=== PATIENT | female | born 1975 | race Hispanic/Latino ===

== ENCOUNTER 2023-04-23 07:30 | Day surgery (SDC) | payer BC ==
[2023-04-18 11:47] LABS: BASOPHILS # (AUTO) 0.04 K/uL (0.00-0.20); BASOPHILS % (AUTO) 0.5 % (0.0-5.0); EOSINOPHILS % (AUTO) 1.1 % (0.0-8.0); HEMATOCRIT 42.8 % (36-48); IMMATURE GRANULOCYTE ABSOLUTE 0.02 K/uL (0-1); LYMPHOCYTES # (AUTO) 1.9 K/uL (1.0-4.8); LYMPHOCYTES % (AUTO) 21.9 % (21.0-51.0); MEAN CORPUSCULAR HEMOGLOBIN 26.7 pg (27.0-33.0); MEAN CORPUSCULAR HGB CONC 31.3 g/dL (32.0-36.0); MEAN CORPUSCULAR VOLUME 85.4 fL (79-99); MONOCYTES # (AUTO) 0.4 K/uL (0.1-1.0); MONOCYTES % (AUTO) 4.3 % (3.0-13.0); NEUTROPHILS # (AUTO) 6.4 K/uL (1.8-7.7); PLATELET COUNT (AUTO) 305 K/uL (130-400); RED BLOOD CELL COUNT(AUTO) 5.01 MIL/uL (4.00-5.50); RED CELL DISTRIBUTION WIDTH 15.1 % (11.0-15.5); WHITE BLOOD COUNT (AUTO) 8.9 K/uL (4.8-10.8)
[2023-04-18 11:56] LABS: INR < 0.93 (0.85-1.15)
[2023-04-18 11:57] LABS: PARTIAL THROMBOPLASTIN TIME 27.3 SEC (26.3-35.5)
[2023-04-18 12:00] LABS: CREATININE 0.8 mg/dL (0.5-1.5); POTASSIUM 4.3 mmol/L (3.5-5.1)
[2023-04-18 13:07] VITALS: BP 97/44; PULSE 98; RESP 16
[~2023-04-23] VITALS: Ht 162.6 cm; Wt 130.3 kg
[~2023-04-23 07:30] MED LIST: EMPA25TA PO; TIRZ12.5 SQ; TRAM100T40 PO
[2023-04-23 08:10] VITALS: BP 117/62; PULSE 76; RESP 16
[2023-04-23] MEDS ORDERED: PROPOFOL 10 MG/ML 20ML VIAL IV ONE (09:37)
== END 2023-04-23 10:30 | disposition home or self-care (01) ==
LOC: DAH 07:30
PROVIDERS: ATTEND Surgery
DX: K29.50 Unspecified chronic gastritis without bleeding (principal); E11.9 Type 2 diabetes mellitus without complications; E66.01 Morbid (severe) obesity due to excess calories; Z68.42 Body mass index [BMI] 45.0-49.9, adult; Z82.49 Family history of ischemic heart disease and other diseases of the circulatory system; Z83.3 Family history of diabetes mellitus; Z79.899 Other long term (current) drug therapy
CPT/HCPCS: 80048; 84703; 85025; 85610; 85730; 36415; 82948; 81025; 88305; 88312; 43239; A6260; J2704; A4620; A4215; A4223; A7002; A4222; A4221; A4663; J7030; A4606; J3490

== ENCOUNTER → 2024-01-08 | Outpatient (CLI) | payer OTHER ==
[~2024-01-08] VITALS: Ht 10.2 cm; Wt 131.8 kg
== END | disposition home or self-care (01) ==
LOC: DTH 12:55
PROVIDERS: ATTEND Surgery
DX: E66.01 Morbid (severe) obesity due to excess calories (principal); G47.33 Obstructive sleep apnea (adult) (pediatric); E11.9 Type 2 diabetes mellitus without complications; M19.90 Unspecified osteoarthritis, unspecified site; K21.9 Gastro-esophageal reflux disease without esophagitis; K76.0 Fatty (change of) liver, not elsewhere classified; E78.00 Pure hypercholesterolemia, unspecified; Z68.42 Body mass index [BMI] 45.0-49.9, adult; Z71.3 Dietary counseling and surveillance
CPT/HCPCS: 97802

== ENCOUNTER → 2024-01-10 | Outpatient (CLI) | payer BC ==
[2024-01-10 08:54] LABS: BASOPHILS # (AUTO) 0.06 K/uL (0.00-0.20); BASOPHILS % (AUTO) 0.6 % (0.0-5.0); EOSINOPHILS # (AUTO) 0.31 K/uL (0.00-0.70); EOSINOPHILS % (AUTO) 3.2 % (0.0-8.0); HEMATOCRIT 43.9 % (36-48); IMMATURE GRANULOCYTE ABSOLUTE 0.02 K/uL (0-1); LYMPHOCYTES # (AUTO) 1.9 K/uL (1.0-4.8); LYMPHOCYTES % (AUTO) 19.3 % (21.0-51.0); MEAN CORPUSCULAR HEMOGLOBIN 26.6 pg (27.0-33.0); MEAN CORPUSCULAR HGB CONC 32.3 g/dL (32.0-36.0); MEAN CORPUSCULAR VOLUME 82.2 fL (79-99); MONOCYTES # (AUTO) 0.5 K/uL (0.1-1.0); MONOCYTES % (AUTO) 4.9 % (3.0-13.0); NEUTROPHILS % (AUTO) 71.8 % (40.0-77.0); PLATELET COUNT (AUTO) 252 K/uL (130-400); RED BLOOD CELL COUNT(AUTO) 5.34 MIL/uL (4.00-5.50); RED CELL DISTRIBUTION WIDTH 15.9 % (11.0-15.5); WHITE BLOOD COUNT (AUTO) 9.8 K/uL (4.8-10.8)
[2024-01-10 09:03] LABS: HEMOGLOBIN A1C 10.4 % (4.0-6.0)
[2024-01-10 09:43] LABS: ALBUMIN 3.2 g/dL (3.5-5.0); BILIRUBIN,TOTAL 0.5 mg/dL (0.2-1.0); CREATININE 0.8 mg/dL (0.5-1.0); MAGNESIUM 1.7 mg/dL (1.80-2.40); POTASSIUM 4.4 mmol/L (3.5-5.1); T4 (THYROXINE) 10.4 ug/dL (4.7-13.3); THYROID STIMULATING HORMONE 1.02 uIU/mL (0.36-3.74); TOTAL PROTEIN, SERUM 7.6 g/dL (6.0-8.3)
== END | disposition home or self-care (01) ==
LOC: LAB 10:00
PROVIDERS: ATTEND Surgery
DX: E11.9 Type 2 diabetes mellitus without complications (principal); M19.91 Primary osteoarthritis, unspecified site; E78.00 Pure hypercholesterolemia, unspecified; K76.0 Fatty (change of) liver, not elsewhere classified; K21.9 Gastro-esophageal reflux disease without esophagitis; E66.01 Morbid (severe) obesity due to excess calories; Z79.899 Other long term (current) drug therapy
CPT/HCPCS: 36415; 71045; 80053; 80061; 82306; 82607; 82746; 82947; 83036; 83540; 83735; 84207; 84425; 84436; 84443; 84446; 84481; 84590; 84630; 85025; 93005

== ENCOUNTER → 2024-01-22 | Outpatient (CLI) | payer OTHER | END | disposition home or self-care (01) | LOC: DTH 11:47 | PROVIDERS: ATTEND Surgery | DX: E66.01 Morbid (severe) obesity due to excess calories (principal); K21.9 Gastro-esophageal reflux disease without esophagitis; E11.9 Type 2 diabetes mellitus without complications; E78.00 Pure hypercholesterolemia, unspecified; K76.0 Fatty (change of) liver, not elsewhere classified; M19.90 Unspecified osteoarthritis, unspecified site; Z68.42 Body mass index [BMI] 45.0-49.9, adult; Z71.3 Dietary counseling and surveillance | CPT/HCPCS: 97803 ==

== ENCOUNTER 2025-02-10 08:36 | Observation (INO) | payer BC ==
[2025-02-09 14:53] LABS: IMMATURE GRANULOCYTE ABSOLUTE 0.02 K/uL (0-1); NUCLEATED RED BLOOD CELLS 0.0 % (0.0-0.19); PLATELET COUNT (AUTO) 248 K/uL (130-400); RED BLOOD CELL COUNT(AUTO) 5.30 MIL/uL (4.00-5.50); RED CELL DISTRIBUTION WIDTH 14.4 % (11.0-15.5); WHITE BLOOD COUNT (AUTO) 9.1 K/uL (4.8-10.8)
[2025-02-09 15:00] LABS: CREATININE 0.8 mg/dL (0.5-1.0); GLOMERULAR FILTR. RATE CALC 90.0 mL/min (>90); GLUCOSE,RANDOM 197.0 mg/dL (70-105); SODIUM SERUM 138.0 mmol/L (136-145); UREA NITROGEN, BLOOD 8.0 mg/dL (7-18)
[2025-02-09 15:02] LABS: INR 1.03 (0.85-1.15)
[2025-02-09 15:08] VITALS: BP 116/67; PULSE 68; RESP 16; TEMP 98.1
--- NOTE | 2025-02-09 18:45 | EKG ---
[facility] Test Date: 2025-02-09 Test Time: 14:36:35 Pat Name: CHARI GARCIA Department: [facility] Room: Gender: F Med Surg Nurse: [id number] : 1975 Requested By: MEGAN CHAIDEZ Order Number: [id number] Reading MD: Eugenie Souza Measurements Intervals [place] Rate: 71 P: 50 [place]: 138 QRS: -18 QRSD: 89 T: 38 QT: 396 QTc: 430 Interpretive Statements Sinus rhythm Compared to ECG 01/10/2024 08:41:43 No significant changes Electronically Signed On 02-10-2025 08:34:09 CDT by Eugenie Souza Please click the below link to view image of tracing.
[2025-02-10] VITALS (29 sets, daily range): BP systolic 117–157; BP diastolic 62–97; PULSE 68–100; RESP 15–20; TEMP 97.3–98.2; O2SAT 91–92
[~2025-02-10] VITALS: Ht 162.6 cm; Wt 115.2 kg
[2025-02-10] MEDS: 0.9%NACL 1000ML 1,000 ML IV ONE (09:31)
[2025-02-10] MEDS ORDERED: LIDOCAINE PF 100MG/5ML (2%) SYRINGE 5ML ONE (12:51)
[2025-02-10] MEDS ORDERED: NEOSTIGMINE METHYLSULFATE 1MG/ML IV ONE (12:52)
[2025-02-10] MEDS ORDERED: SUCCINYLCHOLINE CHLORIDE 20 MG/ML 10 ML VIAL ONE (12:52)
[2025-02-10] MEDS ORDERED: GLYCOPYRROLATE 0.2 MG/ML 5 ML VIAL ONE (12:52)
[2025-02-10] MEDS ORDERED: MIDAZOLAM HCL 1 MG/ML 2ML VIAL ONE (12:53)
[2025-02-10] MEDS: FAMOTIDINE 20MG VIAL IV ONE (13:39)
[2025-02-10] MEDS: SUGAMMADEX SODIUM 200 MG/2 ML VIAL IV ONE (13:42)
[2025-02-10] MEDS ORDERED: PROCHLORPERAZINE 10MG/2ML INJ IV PRN (15:30)
--- NOTE | 2025-02-10 15:46 | OP ---
Operative Note: DATE OF PROCEDURE: 02/10/25 SURGEON: MEGAN CHAIDEZ MD MICROSTRATEGY BI DEVELOPER: [Please review operative record] ANESTHESIA: [General and local] ANESTHESIOLOGIST/INPATIENT SERVICES DIRECTOR: [Please review operative record] PREOPERATIVE DIAGNOSIS: [Morbid obesity and associated comorbidities including type 2 diabetes, hyperlipidemia, obstructive sleep apnea.] POSTOPERATIVE DIAGNOSIS: [Same in addition to fatty liver infiltration] SYNOPSIS: [Fatty liver infiltration, with laparoscopic-assisted percutaneous core needle liver biopsy performed. EGD post sleeve gastrectomy showing no air leak, no obstruction, no active intraluminal bleeding.] PROCEDURE: [Robotic assisted laparoscopic vertical sleeve gastrectomy. Omentoplasty. Intraoperative EGD. Laparoscopic-assisted percutaneous core needle liver biopsy] ESTIMATED BLOOD LOSS: [20 cc] INDICATIONS: [50-year-old female with morbid obesity and associated comorbidities including hyperlipidemia, type 2 diabetes, obstructive sleep apnea who failed in the past conservative measures in order to lose weight. Recommendation was given for bariatric surgery. Patient underwent the appropriate clearances. Upon discussion, it was decided that vertical sleeve gastrectomy was the appropriate procedure for this patient. Risks, benefits, alternatives were discussed with the patient. All her questions were answered. Patient agreed to proceed with surgical procedure] DESCRIPTION OF PROCEDURE: [After appropriate consent was obtained, the patient was taken to the operating room placed in supine position on the operating table. SCDs were placed, preop antibiotics were given. Patient underwent induction of general anesthesia, endotracheal intubation. Patient was then prepped and draped in usual sterile fashion. Time-out was performed. Through a left subcostal incision, Veress needle was inserted into the peritoneal cavity. Insufflation was allowed to 12 mmHg. Through a supraumbilical incision, 8 mm trocar and laparoscope were advanced into the peritoneal cavity using Autotetherview. Veress needle and this vicinity were examined with no signs of injury. Rest of my trocars were all placed under direct visualization. At this time patient was placed in the reverse Trendelenburg at 20 position. The da Jad robot was docked. Upon evaluation of the liver, it shows signs of fatty infiltration and nodular appearance. A liver biopsy was later performed. Left lobe of the liver was retracted anteriorly with a 5 mm liver retractor. We mobilized the greater curvature of the stomach from the angle of his down to 3 cm proximal to the pylorus using the vessel sealer scalpel. We applied a blue load 4 cm proximal to the pylorus parallel to the lesser curvature. We then passed the flexible endoscope down the esophagus along the lesser curvature of the stomach and into the pylorus. We then applied a series of white loads parallel to the endoscope up towards the angle of Hiss. The staple lines were examined on both sides and found to be intact. Endoscopy with insufflation revealed no leaks, no active intraluminal bleeding, no obstruction. The scope was then withdrawn. An omental covering was placed over the staple edge of the stomach by suturing the omentum to the stomach with a running two 0 V lock absorbable suture. At this time the da Jad robot was undocked. A laparoscopic-assisted percutaneous core needle liver biopsy was then performed. The needle was passed percutaneously in the left lobe of the liver. Good specimen was obtained and sent for pathology. Final inspection revealed no bleeding or injury. The gastric remnant specimen was then removed through a 12 mm trocar. We closed the 12 mm port fascia with 0 Vicryl suture through a suture Passer. Counts were correct at the end of the case. The abdomen was deflated. Skin incisions were closed with 4-0 Monocryl suture. Dermabond was applied over the incisions. The patient tolerated the procedure well. Patient went to recovery in good condition.] MEGAN CHAIDEZ MD Feb 10, 2025 15:46
--- NOTE | 2025-02-10 17:00 | NUR ---
PATIENT ARRIVED TO UNIT Patient transferred from PACU to unit via stretcher. Assisted to stand x 1 staff, and contact assist to bathroom. Patient voided large amount of clear yellow urine. Assisted back to bed x 1 staff. Denies pain at this time. 5 incision with dermabond, clean dry and intact. Family/significant other at bedside. Patient oriented to unit, room. Fall precautions in place. Patient complains of mild nausea. Will administer prn antinausea medication. Call light in reach. Personal belongings near patient. Instructed to call for assist if needed. Addendum: 02/10/25 at 1742 by BOSSMAN BELTRAN RN RN Antinausea medication not due. Patient reports that she is not nauseated. She meant to say that she is in pain. Reports a pain at 6/10. Will administer prn.
[2025-02-10] MEDS: LACTATED RINGERS 1000ML 1,000 ML IV SCH (18:15)
[2025-02-10] MEDS: ENOXAPARIN SODIUM 40 MG/0.4 ML SYRINGE SQ SCH (21:05)
--- NOTE | 2025-02-10 21:40 | NUR ---
Pt. up and ambulating in hallway @ this time, tolerating well; no c/o voiced out.
[2025-02-11] VITALS (7 sets, daily range): BP systolic 120–151; BP diastolic 63–75; PULSE 61–78; RESP 18–24; TEMP 97.8–98.4; O2SAT 97
[2025-02-11] MEDS: HYDROcod/acetaMINOPHEN 7.5/325 MG 15 ML UDCUP PO PRN (06:22)
--- NOTE | 2025-02-11 09:37 | NUR ---
DCP:HOME Pt currently lives with her dgt. pt does not have any DME, home health, or provider services. Pt states that she is able to complete ADLs independently. PCP is Dr. Matthew Thao and uses [facility] for any RX needs. At [place] pt will want to go home and family can assist with transportation. Addendum: 02/11/25 at 0939 by HERMAN SUE SS Amended: Links added.
--- NOTE | 2025-02-11 14:00 | NUR ---
PT OBSERVED AMBULATING IN HALLS WITH ABD BINDER ON NO SAFETY CONCERNS NOTED. DC FROM PT. Addendum: 02/11/25 at 1528 by LUZ GRAY PT Amended: Links added.
--- NOTE | 2025-02-11 14:17 | NUR ---
Nutrition consult per Pt bariatric Reviewed labs, notes, and medications. Pt with phase 1, sedated, insulin, BG 170(H) per chart review. Daughter in room during visit. Pt reported <50%PO intake, denied N/V, belching, gas, fair appetite, MVI to arrive at home today, still has all RD education, spoke to mortgage coordinator already, is able to walk, tolerating phase 1. RD reviewed educational material for post-op diet recommendations. Pt was informed of importance of lifelong vitamin/mineral supplementation, choosing protein first during meals (pt was educated on higher protein requirements), choosing low calorie, sugar free, carbonated free and caffeine beverages. RD also informed pt on lifelong commitment to exercise and dietary recommendations for optimal success post surgery. RD encouraged getting blood work every 3 to 6 months, including B-vitamins, Pt verbalized understanding. RD informed Pt on moving around after procedure to prevent DVT, Pt verbalized understanding. Pt was encouraged to contact RD as questions arise and to attend support groups. Fair compliance suspected. Pt will benefit from outpatient bariatric dietitian follow up post procedure. Pt to follow up with PCP for labs. Recommendations: -Continue phase 1 bariatric diet for 1 week -Provide chewable MVI QD when medically feasible -Monitor electrolytes -Monitor diet tolerance -Monitor BM -Monitor wts -Monitor PO intake -Recommend Pt to follow up with PCP -Monitor goals of care RD available for consult per protocol Addendum: 02/11/25 at [address] Amended: Links added.
--- NOTE | 2025-02-11 14:58 | NUR ---
PATIENT DISCHARGED. IVS REMOVED INTACT. APPOINTMENT TIMES AND DATES GIVEN, PRESCRIPTIONS GIVEN TO PATIENT. ALL QUESTIONS AND CONCERNS ANSWERED. PATIENT TRANSPORTED DOWN VIA WHEELCHAIR ALERT AND ORIENTED X 4.
--- NOTE | 2025-02-11 19:33 | DS ---
Discharge Summary Hospital Course No acute events overnight. Patient has tolerated clear fluids well. VSS. Her BBS are clear. Abdomen is soft and not distended. Active BS present. Incisions are D&I christine. Home care instructions with ER warnings given. Instructed to keep on clear liquid diet. Encouraged ambulation and I/s exercises. She is to keep f/u appt in one week. She verbalized understanding and agreement. DEBO AREVALO NP Feb 11, 2025 19:33
--- NOTE | 2025-02-11 20:45 | NUR ---
Pt. dismissed [id number] via w/c @ this time, escorted out per [facility]; no problems noted.
== END 2025-02-11 20:59 | disposition still patient (30) ==
LOC: DAH 08:36 → INTOOBSV 08:37 → DAHIP 08:37 → 3BH 17:05
PROVIDERS: ADMIT Surgery; ATTEND Surgery
DX: G47.33 Obstructive sleep apnea (adult) (pediatric) (principal); E11.9 Type 2 diabetes mellitus without complications; E78.5 Hyperlipidemia, unspecified; E11.59 Type 2 diabetes mellitus with other circulatory complications; E66.01 Morbid (severe) obesity due to excess calories; K76.0 Fatty (change of) liver, not elsewhere classified; Z79.899 Other long term (current) drug therapy; Z98.890 Other specified postprocedural states; Z68.41 Body mass index [BMI] 40.0-44.9, adult
CPT/HCPCS: 80048; 84703; 85025; 85610; 85730; 86850; 86900; 86901; 36415; 93005; 43775; 96374; 96372 ×2; 82948 ×8; 88307; 43235; 96376; A6260; A4663; J7030 ×2; A4215 ×2; J3490 ×6; J3010; J0690 ×2; J1100; J0330; J2003; J2250; J2704; J2405 ×3; J2710; J0665; J1650 ×3; J1815 ×4; J1171 ×2; A4649; A4930 ×2; A4223 ×2; A4222; A4221; A4216; A4600; G0378 ×12